=== PATIENT | female | born 1955 | race Caucasian/White ===

== ENCOUNTER 2017-02-02 07:30 | Outpatient (CLI) | payer BC ==
[2017-02-02 07:40] VITALS: BP 126/69
--- NOTE | 2017-02-02 15:59 | GI Progress Note ---
Assessment/Plan Problems: (1) Anemia ICD Codes: D64.9 - Anemia, unspecified SNOMED: 116629295 (2) Encounter for diagnostic endoscopy ICD Codes: Z01.818 - Encounter for other preprocedural examination SNOMED: 124140246, 562649672 Status: stable Status Narrative Seen with Dr. Grant. Assessment/Plan SBCE today. RTC tomorrow for equipment return. Subjective Gastrointestinal/Abdominal: Reports: no symptoms Subjective Here for SBCE Objective T 98.1 Bp 126/69 P 76 Denies any unintentional weight loss or changes in dietary habits. General Appearance: WD/WN, no apparent distress, alert Cardiovascular: normal rate Respiratory/Chest: normal breath sounds, no respiratory distress Abdominal Exam: normal bowel sounds, non tender, soft Extremities: normal range of motion, non-tender Deirdre Zhang N.P. Feb 02, 2017 15:59
--- NOTE | 2017-02-09 09:15 | Procedure Note ---
DATE OF PROCEDURE: 02/02/2017 SURGEON: James Grant M.D. PROCEDURE: Capsule endoscopy. REASON FOR PROCEDURE: The procedure, risks, benefits, and possible consequences, including hemorrhage, aspiration, perforation and infection, and alternative treatments, were explained to the patient/legal guardian by Dr. James Grant and the patient/legal guardian understood and accepted these risks. DESCRIPTION OF PROCEDURE: The patient swallowed the capsule. Capsule spent 9 minutes in the stomach before entering the small intestine. The patient had a rapid passage of the capsule to the small intestine and spent only 3 hours and 34 minutes in the small intestine before entering the colon. Quality of prep was good. No findings were seen. No active bleeding. No polyp. No obvious source for anemia or any pathology was seen. The patient tolerated the procedure well without any complication. SUMMARY OF FINDINGS: to the small intestine only 3 hours and 34 minutes spent in the small intestine without any acute finding. RECOMMENDATIONS: The patient is to follow with Dr. Morales, who is her primary ar manager for further management of gastroenterology issues. I want to thank, Dr. Morales, for this kind referral. James Grant M.D. DR: CORRINA JOB#: [id number] CC:
== END 2017-02-02 08:15 | disposition home or self-care (01) ==
LOC: PAN 07:30
DX: Z01.818 Encounter for other preprocedural examination (principal); D64.9 Anemia, unspecified